=== PATIENT | female | born 1945 | race Caucasian/White ===

== ENCOUNTER → 2023-12-18 08:58 | Outpatient (CLI) | payer MEDICARE, OTHER, SELFPAY ==
--- NOTE | 2023-12-18 09:01 | DI.RAD.S_ITS ---
PROCEDURE: XR LUMBAR SPINE MIN 4V INDICATIONS: BACK PAIN TECHNIQUE: 5 views of the lumbar spine were acquired, including bilateral oblique views. COMPARISON: None. FINDINGS: Bones: 5 nonrib-bearing vertebrae are present. Dextroscoliotic curvature of the lumbar spine. There is multilevel facet arthropathy, worse at L4-5 and L5-S1. Multilevel disc height loss with degenerative endplate changes and spurring is present. No vertebral body compression fractures. No suspicious bony lesions. Right sacroiliac hardware. Diffusely decreased osseous mineralization. Soft tissues: Overlying bowel gas pattern is normal. No suspicious soft tissue calcifications. Surgical clips projecting over the pelvis. Oblique images: No definite pars defects, however evaluation is limited secondary to curvature and degenerative changes. IMPRESSION: Severe degenerative changes of the lumbar spine. No acute osseous abnormalities. Dictated by: Bal Galdamez M.D. on 12/18/2023 at 9:45 Approved by: Bal Galdamez M.D. on 12/18/2023 at 9:46
== END ==
PROVIDERS: PCP Internal Medicine; Referring Provider Physical Medicine & Rehabilitation; Visit Provider Physical Medicine & Rehabilitation
DX: M47.816 Spondylosis without myelopathy or radiculopathy, lumbar region (principal); M47.817 Spondylosis without myelopathy or radiculopathy, lumbosacral region; M54.9 Dorsalgia, unspecified
CPT/HCPCS: 72110

== ENCOUNTER → 2023-12-26 13:31 | Outpatient (CLI) | payer MEDICARE, OTHER, SELFPAY ==
--- NOTE | 2023-12-26 13:33 | DI.MRI.S_ITS ---
PROCEDURE: MR LUMBAR SPINE WO CON INDICATIONS: Post laminectomy syndrome TECHNIQUE: Noncontrast sagittal T1 spin echo and T2 fast echo, sagittal STIR, and T2 fast spin echo through the lumbar spine. In cases with scoliosis, additional coronal T2 fast spin echo may be performed. COMPARISON: [facility], MR, LUMBAR SPINE W/O CONTRAST, 02/10/2014, 15:27. [facility], MR, MR LUMBAR SPINE WITHOUT CONTRAST, 08/07/2017, 13:34. [facility], [facility], MRI L-SPINE W/WO CONTRAST, 06/26/2021, 8:14. [facility], CR, XR LUMBAR SPINE MIN 4V, 12/18/2023, 9:06. [facility], MRI L-SPINE W/O CONTRAST, 03/05/2023, 10:06. FINDINGS: Image quality: This examination is limited by involuntary motion artifact. Alignment and Curvature: [id number] dextroconvex lumbar scoliosis is seen. Bone Marrow: Marrow is of normal overall signal. No acute vertebral body compression fractures. Spinal Cord: Conus medullaris terminates at the L1 level. Visualized cord demonstrates normal signal and size. Paraspinous Soft Tissues: No paravertebral masses. T10-T11: At least moderate loss of disc height and disc signal can be seen. Reactive marrow endplate changes are seen, which are hyperintense on T1-weighted and T2-weighted imaging and most consistent with fatty metaplasia (Modic type II changes). Mild disc bulge is seen, with a central disc protrusion. There is at least moderate left-sided and moderate to severe right-sided neural foraminal narrowing. Mild to moderate central canal narrowing is seen. T11-T12: Moderate loss of disc height is seen. Loss of disc signal is seen. Reactive marrow endplate changes are seen which are hypointense on T1-weighted imaging and hyperintense on T2 weighted imaging, which is most consistent with edema (Modic type I changes). Mild to moderate disc bulge is seen, with a central/right disc protrusion. Moderate facet joint hypertrophy is seen. There is at least moderate right-sided and no significant left-sided neural foraminal narrowing. Mild to moderate central canal narrowing is seen. T12-L1: Mild loss of disc height is seen. Loss of disc signal is seen. Mild disc bulge is seen, with a central disc protrusion. There is [id number] bilateral neural foraminal narrowing. Mild to moderate central canal narrowing is seen. When comparison is made with the prior images, these findings are similar. L1-L2: Moderate loss of disc height and disc signal can be seen on the right. Moderate disc bulge is seen, which is eccentric to the right. There is a superimposed central disc protrusion. Mild facet joint hypertrophy is seen. There is at least moderate right-sided and moderate left-sided neural foraminal narrowing. At least moderate central canal narrowing is seen. When comparison is made with the prior images, these findings are similar. L2-L3: Moderate to severe loss of disc height and disc signal can be seen on the left. Reactive marrow endplate changes are seen, which are hyperintense on T1-weighted and T2-weighted imaging and most consistent with fatty metaplasia (Modic type II changes). Moderate generalized disc bulge is seen. There is a central disc osteophyte protrusion. Mild to moderate facet hypertrophy is seen. There is mild right-sided and at least moderate left-sided neural foraminal narrowing. At least moderate central canal narrowing is seen. When comparison is made with the prior images, these findings are similar. L3-L4: Moderate to severe loss of disc height and disc signal can be seen on the left. At least moderate disc bulge is seen, which is eccentric to the left. At least moderate facet hypertrophy is seen. There is moderate to severe bilateral neural foraminal narrowing seen, with an associated degree of compression seen upon the exiting nerve roots. Moderate central canal narrowing is seen. No significant change from the prior. L4-L5: Moderate to severe loss of disc height and disc signal can be seen. Reactive marrow endplate changes are seen, which are hyperintense on T1-weighted and T2-weighted imaging and most consistent with fatty metaplasia (Modic type II changes). Moderate disc bulge is seen, with a central/right disc extrusion, with superior migration of the disc material. There is at least moderate right-sided and moderate left-sided facet hypertrophy. There is at least moderate left-sided and moderate to severe right-sided neural foraminal narrowing. There is a degree of compression seen upon the exiting nerve roots. Mild central canal narrowing is seen. When comparison is made with the prior images, these findings are similar. L5-S1: Mild loss of disc height is seen. Loss of disc signal is seen. Mild disc bulge is seen, which is eccentric to the right. There is a superimposed central disc protrusion. There is moderate right-sided and mild left-sided facet hypertrophy. There is moderate to severe right-sided and at least moderate left-sided neural foraminal narrowing. There is a degree of compression seen upon the exiting nerve roots. Mild central canal narrowing is seen. No significant change from the prior. Postoperative change of the right sacroiliac joint can be seen, with fusion. IMPRESSION: Multiple levels of significant lumbar spine degenerative change can be seen, which are similar to the prior outside 2022 images. Dextroconvex scoliosis. There is prior fusion of the right sacroiliac joint. Dictated by: Darryn Vazquez M.D. on 12/26/2023 at 15:47 Approved by: Darryn Vazquez M.D. on 12/26/2023 at 15:56
== END ==
PROVIDERS: PCP Internal Medicine; Referring Provider Physical Medicine & Rehabilitation; Visit Provider Physical Medicine & Rehabilitation
DX: M47.26 Other spondylosis with radiculopathy, lumbar region (principal); M47.27 Other spondylosis with radiculopathy, lumbosacral region; M41.9 Scoliosis, unspecified; Z98.1 Arthrodesis status
CPT/HCPCS: 72148

== ENCOUNTER 2024-05-12 08:35 | Outpatient (CLI) | payer MEDICARE, OTHER, SELFPAY ==
[2024-05-12] VITALS (10 sets, daily range): BP systolic 126–146; BP diastolic 66–80; PULSE 60–73; RESP 15–18; TEMP 36.4; O2SAT 95–100
--- NOTE | 2024-05-12 10:31 | DI.RAD.S_ITS ---
PROCEDURE: PAIN L/S TRANSFORAMINAL INJECT INDICATIONS: Right L4/5, L5/S1 TFESI COMPARISON: None. FINDINGS: Fluoroscopic spot filming was performed to verify placement of spinal needles at the right L4-5, L5-S1 level(s), as labeled on the films. Appropriate location(s) of the needle tip(s) was confirmed by injection of iodinated contrast. IMPRESSION: Intra procedural examination demonstrating appropriate positions of the needles. Dictated by: Bal Galdamez M.D. on 05/12/2024 at 11:47 Approved by: Bal Galdamez M.D. on 05/12/2024 at 11:48
[2024-05-12] MEDS: MIDAZOLAM 2 MG/2 ML VIAL IV (11:05)
[2024-05-12] MEDS: BUPIVACAINE 0.25% (PF) VIAL 2 ML INJ (11:08)
[2024-05-12] MEDS: DEXAMETHASONE 10 MG/ML VIAL 20 MG INJ (11:09)
[2024-05-12] MEDS: iopamidoL 15 ML VIAL 3 ML INJ (11:09)
[2024-05-12] MEDS: BETAMETHASONE 30 MG/5 ML MDV 12 MG INJ (11:09)
--- NOTE | 2024-05-12 11:28 | P.PCN_ITS ---
Date/Time/Diagnoses Date of procedure: 05/12/24 Time of procedure: 11:28 Pre-procedure diagnosis: 1. FORAMINAL STENOSIS WITH LE SYMPTOMS Post-procedure diagnosis: same Procedure Notes Procedure: 1. FLUOROSCOPICALLY GUIDED CONTRAST CONTROLLED TRANSFORAMINAL EPIDURAL STEROID INJECTION - RIGHT L4/5 TFESI Indications: Renetta is referred by Dr. Cardenas for treatment of Foraminal Stenosis with Right LE Symptoms Physician: Allan Christianson Total Fluoroscopy time (seconds): 9 Total sedation minutes: 17 Complications: none Procedure in detail & Post-procedure care: FINDINGS Foraminal Nerve Root Compression secondary to disc disease and facet hypertrophy DESCRIPTION OF PROCEDURE Following review of allergy and review of potential side effects and complications, including, but not necessarily limited to, infection, allergic reaction, local tissue breakdown, stroke, temporary or permanent nerve injury, paralysis, and possible , the patient indicated that the patient understood and agreed to proceed. An informed consent document was signed by the patient, witnessed by a nurse, and placed in the patient's chart. Additionally, other treatment options including medications, modalities, and physical therapy were reviewed with the patient. After review of previous anaesthesic history and IV conscious sedation the patient was deemed safe to proceed with today?s procedure with IV conscious sedation as ASA class II designation. Safety time-out was performed to confirm patient ID, procedure to be performed and site of procedure. IV sedation was accomplished with a combination of 2mg of Versed was administered by the RN after DO order, titrated to patient comfort during the course of the procedure while the patient remained responsive to all verbal commands In the prone position following sterile prep and drape of the lumbar region, the right L4/5 posterior neuroforamen was identified fluoroscopically. The skin was anesthetized via a 25-gauge 1.5-inch needle with 1% lidocaine solution. At this point, a 25-gauge 3.5-inch spinal needle was atraumatically introduced and advanced under fluoroscopic guidance through the posterior right L4/5 neuroforamen to approximately the anterior aspect of the canal. Depth was confirmed on lateral view. Following negative aspiration, injection of approximately 1.5cc of Isovue 200 under live fluoroscopy in the AP view con firmed excellent flow along the nerve root, into the epidural space without vascular or intrathecal uptake observed Radiological data, including multiple fluoroscopic views of the lumbosacral spine, reveal a spinal needle at the right L4/5 posterior neuroforamen. Subsequent views show flow of contrast material flowing superiorly and inferiorly along the nerve root confirming epidural flow. Subsequently, a test dose of 1.5 cc of 1% lidocaine solution was administered and patient was observed for two minutes for signs or symptoms of complications, including abdominal pain, shortness of breath, bilateral upper or lower extremity weakness, nausea and vomiting, prior to steroid injection. At this point, a total of 2cc or 10mg of dexamethasone and 6mg of betamethasone was injected without incident. The procedure tolerated the procedure well without signs or symptoms of complications prior to transfer to the recovery area continued monitoring without incident. The patient was then transferred to the recovery area where they were observed for an appropriate time after the injection. The patient reported a VAS score of 7 prior to the procedure and a post- procedure VAS of 0. POST OP INSTRUCTIONS The patient was provided a Pain Log to continue to record their response to the target-specific procedure prior to follow-up visit with their referring p hysician. Additionally, specific post-injection care instructions and a contact number to our office were provided if concerns arise regarding possible complications associated with the procedure are suspected.
--- NOTE | 2024-05-12 11:29 | P.PCN_ITS ---
Date/Time/Diagnoses Date of procedure: 05/12/24 Time of procedure: 11:29 Pre-procedure diagnosis: FORAMINAL STENOSIS WITH LE SYMPTOMS Post-procedure diagnosis: same Procedure Notes Procedure: 1. FLUOROSCOPICALLY GUIDED CONTRAST CONTROLLED TRANSFORAMINAL EPIDURAL STEROID INJECTION - RIGHT L5/S1 TFESI Indications: Renetta is referred by Dr. Cardenas for treatment of Foraminal Stenosis with Right LE Symptoms Physician: Allan Christianson Total Fluoroscopy time (seconds): 9 Total sedation minutes: 17 Complications: none Procedure in detail & Post-procedure care: FINDINGS Foraminal Nerve Root Compression secondary to disc disease and facet hypertrophy DESCRIPTION OF PROCEDURE Following review of allergy and review of potential side effects and complications, including, but not necessarily limited to, infection, allergic reaction, local tissue breakdown, stroke, temporary or permanent nerve injury, paralysis, and possible , the patient indicated that the patient understood and agreed to proceed. An informed consent document was signed by the patient, witnessed by a nurse, and placed in the patient's chart. Additionally, other treatment options including medications, modalities, and physical therapy were reviewed with the patient. After review of previous anaesthesic history and IV conscious sedation the patient was deemed safe to proceed with today?s procedure with IV conscious sedation as ASA class II designation. Safety time-out was performed to confirm patient ID, procedure to be performed and site of procedure. IV sedation was accomplished with a combination of 2mg of Versed was administered by the RN after DO order, titrated to patient comfort during the course of the procedure while the patient remained responsive to all verbal commands In the prone position following sterile prep and drape of the lumbar region, the right L5/S1 posterior neuroforamen was identified fluoroscopically. The skin was anesthetized via a 25-gauge 1.5-inch needle with 1% lidocaine solution. At this point, a 25-gauge 3.5-inch spinal needle was atraumatically introduced and advanced under fluoroscopic guidance through the posterior right L5/S1 neuroforamen to approximately the anterior aspect of the canal. Depth was confirmed on lateral view. Following negative aspiration, injection of approximately 1.5cc of Isovue 200 under live fluoroscopy in the AP view confirmed excellent flow along the nerve root, into the epidural space without vascular or intrathecal uptake observed Radiological data, including multiple fluoroscopic views of the lumbosacral spine, reveal a spinal needle at the right L5/S1 posterior neuroforamen. Subsequent views show flow of contrast material flowing superiorly and inferiorly along the nerve root confirming epidural flow. Subsequently, a test dose of 1.5 cc of 1% lidocaine solution was administered and patient was observed for two minutes for signs or symptoms of complications, including abdominal pain, shortness of breath, bilateral upper or lower extremi ty weakness, nausea and vomiting, prior to steroid injection. At this point, a total of 2cc or 10mg of dexamethasone and 6mg of betamethasone was injected without incident. The procedure tolerated the procedure well without signs or symptoms of complications prior to transfer to the recovery area continued monitoring without incident. The patient was then transferred to the recovery area where they were observed for an appropriate time after the injection. The patient reported a VAS score of 7 prior to the procedure and a post- procedure VAS of 0. POST OP INSTRUCTIONS The patient was provided a Pain Log to continue to record their response to the target-specific procedure prior to follow-up visit with their referring physician. Additionally, specific post-injection care instructions and a contact number to our office were provided if concerns arise regarding possible complications associated with the procedure are suspected.
== END 2024-05-12 11:46 | disposition home or self-care (01) ==
LOC: RAD 08:36
PROVIDERS: PCP Internal Medicine; Referring Provider Physical Medicine & Rehabilitation; Visit Provider Physical Medicine & Rehabilitation
DX: M48.061 Spinal stenosis, lumbar region without neurogenic claudication (principal); M51.16 Intervertebral disc disorders with radiculopathy, lumbar region; M47.26 Other spondylosis with radiculopathy, lumbar region; M48.07 Spinal stenosis, lumbosacral region; M51.17 Intervertebral disc disorders with radiculopathy, lumbosacral region; M47.27 Other spondylosis with radiculopathy, lumbosacral region
CPT/HCPCS: 64483; 64484; 99152; J0702; J1100; J2250; J3490